=== PATIENT | female | born 1980 | race Caucasian/White ===

== ENCOUNTER 2018-06-19 09:57 | Emergency (ER) | payer MEDICAID, SELFPAY ==
[2018-06-19 09:58] VITALS: BP 111/67; PULSE 79; RESP 14; TEMP 36.4; O2SAT 99; BMI 15.1
--- NOTE | 2018-06-19 10:11 | RAD_ITS ---
STUDY: X-RAY CHEST REASON FOR EXAM: Female, 38 years old. [place]. TECHNIQUE: PA and lateral views of the chest. COMPARISON: None. FINDINGS: Hyperinflation. The lungs are clear. There is no demonstrated pleural abnormality. Normal size heart. Normal mediastinum and sneha. Normal visualized pulmonary arteries. Normal visualized aortic arch and descending thoracic aorta. Normal visualized thoracic spine. Normal visualized ribs, clavicles, and shoulders. There is no demonstrated abnormality of the visualized soft tissue structures of the upper abdomen. RAD/Chest PA and Lateral IMPRESSION: Hyperinflation. The lungs are clear. Electronically Signed: Luis Manzano, at 10:45 EDT , Service support ,
--- NOTE | 2018-06-19 10:15 | ED.DCSUM_ITS ---
- ER Visit Summary Date of Service: 06/19/18 Chief Complaint: Weakness History of Present Illness: The patient is a 38 F who states that on Monday she had an episode of vomiting and went to bed. She stayed in bed for most of the day on Monday not having much to eat or drink. This continued through te . She also developed nasal congestion generalized myalgias subjective fever and chills. Last night she took 2 NyQuil PMs today feels lightheaded and weak. She is worried she has dehydration in combination with the side effects of the medication. She notes her mouth is dry. Physical Examination: Afebrile vital signs are stable Gen: Well-nourished well-developed Head: Normocephalic atraumatic Eyes: Perrl EOMI ENT: TMs clear nasal congestion dry mucous membranes Neck: Supple no lymphadenopathy no JVD nontender CVS: Regular rate rhythm no murmurs normal S1-S2 Respiratory: No distress clear to auscultation bilaterally chest nontender Abdomen: Soft nontender nondistended normal bowel sounds no masses Back: Nontender Extremity: Nontender no edema Skin: Normal color no rash Neuro: alert orientated ?3 CN II-XII intact normal strength sensation reflexes gait cerebellar Psych: Normal affect normal mood Test Results: CBC BMP and flu are essentially negative chest x-ray showed no infiltrate. Emergency Department Course and Treatment: Patient received IV fluids. Patient will be discharged home with supportive care return if worsening or concerns Impression: 1. Viral syndrome This note was generated with [employer] dictation software. It may contain incorrect words, spelling, and punctuation that were not noted in review of the chart prior to signing ED Disposition - Plan for ED Patient: Disposition: Home or Assisted Living Instructions: ED Viral Syndrome
[2018-06-19] MEDS: 0.9% Normal Saline 1,000 ML 1000 ML IV (10:27)
[2018-06-19 10:32] LABS: Absolute Lymphocyte Count 1.25 X10^3/ul (0.83-4.51); Absolute Neutrophil Count 6.7 X10^3/uL (2.0-7.7); Basophil# 0.02 X10^3/uL; Basophil% 0.2 % (0-1); Eosinophil# 0.06 X10^3/uL; Eosinophils% 0.7 % (0-5); Hematocrit 39.1 % (37-47); Hemoglobin 13.3 g/dl (12.0-15.0); Lymphocyte # 1.25 X10^3/ul (4.0); Lymphocyte % 15.1 % (19-41); Mean Corpuscular Hgb 31.5 pg (27.0-32.0); Mean Corpuscular Volume 92.7 fL (81-99); Mean Platelet Vol. 10.3 fl (6.2-12.0); Monocyte# 0.29 X10^3/uL; Monocyte% 3.5 % (0-10); Neutrophil # 6.65 X10^3/uL (2.7-7.7); Neutrophil % 80.4 % (47-70); Platelet Count 210 K/mm3 (150-450); RBC Distribution Width CV 12.4 % (11.6-14.6); RBC Distribution Width SD 42.2 fl (35.1-43.9); Red Blood Count 4.22 M/mm3 (4.2-5.4); White Blood Count 8.3 K/mm3 (4.4-11.0)
[2018-06-19 10:34] LABS: POSITIVE COUNT NO; POSITIVE DIFFERENTIAL NO; POSITIVE MORPHOLOGY NO
[2018-06-19 10:45] LABS: Anion Gap 4 (5-15); BUN 11 mg/dL (7-18); BUN/Creat Ratio 15.3 RATIO (10-20); Calcium,Total 8.5 mg/dL (8.5-10.1); Chloride 110 mmol/L (98-107); Creatinine, Serum 0.72 mg/dL (0.55-1.02); EST Glomerular Filtration Rate 96 mL/min (>60); Est Glom Filt Rate - Afr Amer 116 mL/min (>60); Estimated Creatinine Clearance 76.24 ml/min; Glucose 96 mg/dL (74-106); Potassium 3.5 mmol/L (3.5-5.1); Sodium Level 141 mmol/L (136-145)
[2018-06-19 12:20] VITALS: BP 112/74; PULSE 70; RESP 14; TEMP 36.7; O2SAT 100
== END 2018-06-19 12:22 | disposition home or self-care (01) ==
PROVIDERS: Emergency Provider Emergency Medicine
DX: B34.9 Viral infection, unspecified (principal); E86.0 Dehydration
CPT/HCPCS: 71046; 80048; 85025; 87804; 96360; 96361; 99283; J7030

== ENCOUNTER 2021-03-02 14:18 | Emergency (ER) | payer MEDICAID, SELFPAY ==
[2021-03-02 14:19] VITALS: BP 99/69; PULSE 88; RESP 16; TEMP 35.6; O2SAT 98; BMI 16.2
--- NOTE | 2021-03-02 15:46 | EKG12_ITS ---
Test Reason : ANXIETY Blood Pressure : / mmHG Vent. Rate : 065 BPM Atrial Rate : 065 BPM P-R Int : 150 ms QRS Dur : 084 ms QT Int : 440 ms P-R-T Axes : 070 088 073 degrees QTc Int : 457 ms Normal sinus rhythm Normal ECG Confirmed by BRUNO FRANCO, CESAR ([id number]), book editor BUTCH MAGUIRE ([id number]) on 03/04/2021 8:44:24 AM Referred By: MIKE Confirmed By:CESAR CARR MD
--- NOTE | 2021-03-02 15:48 | EX.ED.DYSGE1 ---
HPI History of Present Illness Chief Complaint: Anxiety Detail of Chief Complaint: Anxiety x2 days Informant: patient Narrative Narrative: Patient presents to the emergency department complaint of anxiety. Patient states that she has issues with anxiety. Yesterday she tried taking a Xanax but she threw it up and could not keep it down. Patient states she had a hard time sleeping all night because she felt hot and cold. She states she got up at 3 AM to take a shower which usually helps with her anxiety but did not seem to help. Patient's been having upper abdominal pain and vomiting which typically happens when she gets a panic attack. Patient also states that no increased stressors of late. She does complain of feeling anxious and describes chest discomfort and nausea. Patient tells me she has gallbladder pain sometimes and has had ultrasound but does not have gallstones. Patient also believes that she might have Marfan's but has not been diagnosed. Prior similar symptoms: Yes [facility] Medical History (Updated 03/02/21 @ 18:[address] Abe Gomez, DO) Melanoma of skin Home Medications lorazepam [Ativan] 1 mg PO TID PRN #10 tab 03/02/21 [Rx Last Taken Unknown] ondansetron 4 mg PO Q8H PRN PRN #10 tab 03/02/21 [Rx Last Taken Unknown] Allergy/AdvReac Type Severity Reaction Status Date / Time No Known Allergies Allergy Verified 03/02/21 14:19 Social History Smoking Status: Never smoker ROS ROS ED ROS Narrative Anxiety Constitutional Constitutional ED: Reports systems reviewed and no addt'l complaints, except as documented; Denies body ache(s), change in weight or chills Eyes Eyes: Denies acute decrease in peripheral vision, change in vision, double vision or loss of vision ENT ENT ED: Reports none; Denies ear pain, lip swelling, loss taste/smell, neck pain, otalgia or sore throat Cardiovascular Cardiovascular: Reports none; Denies abdominal pain, chest pain with activity, leg edema, lightheadedness, palpitations, rapid heart rate or syncope Respiratory/Chest Respiratory/Chest: Reports none; Denies change in mental status, dry cough, dyspnea, hemoptysis, shortness of breath at rest or shortness of breath with exertion Gastrointestinal Gastrointestinal: Reports none, abdominal pain, nausea and vomiting; Denies change in stool character, diarrhea, hematemesis, hematochezia, melena or rectal bleeding Genitourinary Genitourinary ED: Reports none; Denies abdominal discomfort, anuria, dysuria, genital pain or polyuria Musculoskeletal Musculoskeletal: Reports none; Denies arthralgias, back pain, difficulty walking, extremity pain, muscle weakness or myalgias Integumentary Reports none; Denies abscess or rash Neurologic Neurologic: Reports none; Denies abnormal gait, confusion, focal weakness, frequent falls, headache(s), loss of vision, numbness, paresthesias, radicular pain, vertigo or weakness Psychiatric Psychiatric: Reports systems reviewed and no addt'l complaints, except as documented and none; Denies behavioral changes, confusion, difficulty concentrating, hallucinations, suicidal ideation, tactile hallucinations or visual hallucinations Endocrine Endocrinology: Denies none, cold intolerance, excessive sweating, fatigue or heat intolerance Hematologic/Lymphatic Hematologic/Lymphatic: Reports none; Denies anemia, easy bleeding or easy bruising Allergic/Immunologic Allergic/Immunologic ED: Denies as per HPI, none, lip swelling, mouth swelling, throat swelling, tongue swelling or hives EXAM Physical Exam Const Vital Signs: 03/02/21 14:19 Temperature 96.1 F L Temperature Source Temporal Pulse Rate 88 Respiratory Rate 16 Blood Pressure 99/69 Blood Pressure Mean 79 Pulse Ox 98 Oxygen Delivery Method Room Air Positive well nourished and well developed General Appearance ED: well developed and NAD HEENT Reports TM's clear and moist mucous membranes normocephalic and atraumatic; Negative for trauma or tenderness Tympanic Membrane ED: Yes TM's clear Eyes PERRL and EOMs intact bilaterally General Eye ED: Negative for pale conjunctiva or scleral icterus Neck no lymphadenopathy, supple and no JVD General: Negative for tenderness Chest Wall inspection of chest normal and palpation of chest normal Chest: Negative for tenderness Resp normal respiratory effort and clear to auscultation bilaterally Effort and Inspection: Negative for respiratory distress or pain with movement Auscultation: Negative for rhonchi, wheezes or diminished lung sounds Cardio regular rate, regular rhythm, S1 normal heart sound, S2 normal heart sound and no murmurs Peripheral Pulses: pulses 2+ throughout GI normal to inspection, nondistended, normoactive bowel sounds, soft to palpation, non-distended and no masses GI Narrative: Mild tenderness palpation over the epigastric region with some guarding. There is no rebound, rigidity, or peritoneal signs. Patient was actively retching and vomiting as I entered the room. Back/Spine no CVA tenderness and no thoracic nor lumbar tenderness Extremity normal to inspection General Extremety ED: Negative for edema General Extremity: Negative for edema Neuro oriented x3, CN's II-XII intact bilaterally, no sensory deficits noted and gait normal Sensorium / Orientation: awake, alert, oriented to person, oriented to place and oriented to time Motor Exam: strength 5/5 throughout and strength abnormal Psych mental status grossly normal Skin no rashes or lesions noted and no wounds MDM MDM MDM Narrative Medical decision making narrative: IV line established on arrival. Patient was given Zofran 4 mg IV and Ativan 1 mg IV. Patient stopped vomiting and felt markedly improved. She was noted to have 150 ketones in the urine so she received initially a liter mostly of fluid bolus followed by second liter. At this point will be given a prescription for Zofran. She is to continue with her Xanax as needed for anxiety. Patient advised to discontinue marijuana use. Patient to follow-up with her primary care physician in 3 to 5 days. Lab Data Attestation: I reviewed the patient's lab results. Labs: Laboratory Results - last 24 hr 03/02/21 03/02/21 03/02/21 16:17 16:17 16:17 WBC 11.2 H RBC 4.42 Hgb 14.4 Hct 42.4 MCV 95.9 MCH 32.6 H MCHC 34.0 RDW Std Deviation 43.0 RDW Coeff of Juanjo 12.1 Plt Count 306 MPV 10.7 Immature Gran % (Auto) 0.300 Neut % (Auto) 85.8 H Lymph % (Auto) 9.8 L [place] % (Auto) 3.8 Eos % (Auto) 0.0 Baso % (Auto) 0.3 Absolute Neuts (auto) 9.6 H Absolute Lymphs (auto) 1.10 Nucleated RBC % 0 Sodium 142 Potassium 3.3 L Chloride 106 Carbon Dioxide 25.0 Anion Gap 11 BUN 20 H Creatinine 0.88 Estim Creat Clear Calc 65.60 Est GFR (MDRD) Af Amer 90 Est GFR (MDRD) Non-Af 75 BUN/Creatinine Ratio 22.7 H Glucose 144 H Calcium 10.1 Total Bilirubin 0.40 AST 19 ALT 25 Alkaline Phosphatase 61 Troponin I High Sens < 3 L Total Protein 8.1 Albumin 4.2 Globulin 3.9 Albumin/Globulin Ratio 1.1 Lipase 57 L Serum , Qual NEGATIVE Urine Color Urine Clarity Urine pH Ur Specific [place] Urine Protein Urine Glucose (UA) Urine Ketones Urine Occult Blood Urine Nitrite Urine Bilirubin Urine Urobilinogen Ur Leukocyte Esterase Urine RBC Urine WBC Ur Squamous Epith Cells Urine Bacteria Urine Mucus 03/02/21 17:25 WBC RBC Hgb Hct MCV MCH MCHC RDW Std Deviation RDW Coeff of Juanjo Plt Count MPV Immature Gran % (Auto) Neut % (Auto) Lymph % (Auto) [place] % (Auto) Eos % (Auto) Baso % (Auto) Absolute Neuts (auto) Absolute Lymphs (auto) Nucleated RBC % Sodium Potassium Chloride Carbon Dioxide Anion Gap BUN Creatinine Estim Creat Clear Calc Est GFR (MDRD) Af Amer Est GFR (MDRD) Non-Af BUN/Creatinine Ratio Glucose Calcium Total Bilirubin AST ALT Alkaline Phosphatase Troponin I High Sens Total Protein Albumin Globulin Albumin/Globulin Ratio Lipase Serum , Qual Urine Color Yellow Urine Clarity Sl. Cloudy Urine pH 8.0 Ur Specific [place] 1.015 Urine Protein 30 H Urine Glucose (UA) Normal Urine Ketones 150 A* Urine Occult Blood 10 H Urine Nitrite Negative Urine Bilirubin Negative Urine Urobilinogen Normal Ur Leukocyte Esterase 25 H Urine RBC 0-5 SEEN Urine WBC 0-5 SEEN Ur Squamous Epith Cells 0-5 SEEN Urine Bacteria 2+ Urine Mucus 0 SEEN Discharge Plan Triage Chief Complaint: Anxiety ED Provider: Abe Gomez Dx/Rx/DC Orders Clinical Impression: Anxiety reaction Instructions: ED Anxiety Reaction Prescriptions: New ondansetron [ondansetron] 4 MG tablet 4 mg PO Q8H PRN PRN (Reason: Nausea) Qty: 10 RF: 0 lorazepam [Ativan] 1 mg tablet 1 mg PO TID PRN (Reason: anxiety) Qty: 10 RF: 0 Primary Care Provider: Care Physician,No Primary Referrals: Ramon Sidhu MD [STAFF PHYSICIAN] - 3-5 Days Care Physician,No Primary [Primary Care Provider] - Disposition Disposition: Home, Self Care
--- NOTE | 2021-03-02 15:59 | NURSING ---
NO OLD EKGS
[2021-03-02 16:26] LABS: Absolute Neutrophil Count 9.6 X10^3/uL (2.0-7.7); Basophil# 0.03 X10^3/uL; Basophil% 0.3 % (0-1); Hematocrit 42.4 % (37-47); Hemoglobin 14.4 g/dL (12.0-15.0); Lymphocyte % 9.8 % (19-41); Mean Corpuscular Hgb 32.6 pg (27.0-32.0); Mean Corpuscular Volume 95.9 fL (81-99); Mean Platelet Vol. 10.7 fl (6.2-12.0); Monocyte# 0.42 X10^3/uL; Monocyte% 3.8 % (0-10); NRBC Flagged by Analyzer 0 % (0-5); Neutrophil # 9.59 X10^3/uL (2.7-7.7); Neutrophil % 85.8 % (47-70); Platelet Count 306 K/mm3 (150-450); RBC Distribution Width CV 12.1 % (11.6-14.6); Red Blood Count 4.42 M/mm3 (4.2-5.4); White Blood Count 11.2 K/mm3 (4.4-11.0)
[2021-03-02] MEDS: 0.9% Normal Saline 1,000 ML 1000 ML IV (16:29)
[2021-03-02] MEDS: Ondansetron 4 MG/2 ML Vial IV (16:30)
[2021-03-02] MEDS: LORazepam 2 MG/ML Syringe 1 MG IV (16:30)
[2021-03-02 16:34] LABS: Internal QC Validated? YES +Cl - CLEAR BKGD; Pregnancy, Serum, hCG Quali. NEGATIVE Negative
[2021-03-02 16:44] LABS: ALB/GLOB Ratio 1.1 RATIO (0.9-2.4); AST(SGOT) 19 U/L (15-37); Alanine Aminotransfer ALT/SGPT 25 U/L (13-56); Albumin, Serum 4.2 g/dL (3.2-5.0); Alkaline Phosphatase 61 U/L (45-117); Anion Gap 11 (5-15); BUN 20 mg/dL (7-18); BUN/Creat Ratio 22.7 RATIO (10-20); Calcium,Total 10.1 mg/dL (8.5-10.1); Chloride 106 mmol/L (98-107); Creatinine, Serum 0.88 mg/dL (0.55-1.02); EST Glomerular Filtration Rate 75 mL/min (>60); Est Glom Filt Rate - Afr Amer 90 mL/min (>60); Globulin 3.9 g/dL (2.2-4.2); Glucose 144 mg/dL (74-106); Lipase 57 U/L (73-393); Potassium 3.3 mmol/L (3.5-5.1); Protein, Total 8.1 g/dL (6.4-8.2); Sodium Level 142 mmol/L (136-145); Troponin-I HS < 3 pg/mL (3.0-54.0)
[2021-03-02 17:27] LABS: Mucous, Urine 0 SEEN /hpf (<or=2+)
[2021-03-02 17:34] LABS: Color, Urine Yellow (Yellow); Glucose, Dipstick Normal (Normal); Leukocyte Esterase-Dipstick 25 /ul (Negative); Nitrite-Dipstick Negative (Negative); Occult Blood-Urine 10 /ul (Negative); Protein-Dipstick 30 mg/dl (Negative); Specific Gravity, Urine 1.015 (1.002-1.030); Urine Bilirubin Dipstick Negative (Negative); Urine Clarity Sl. Cloudy (Clear); Urine Urobilinogen Normal (Normal)
[2021-03-02 17:35] LABS: Ketone-Dipstick 150 mg/dl (Negative)
[2021-03-02 17:40] LABS: Bacteria 2+ /hpf (None Seen); Red Blood Cells-Urine 0-5 SEEN /hpf (0-5); Squamous Epithelial Cells - UA 0-5 SEEN /hpf (5-10); White Blood Cells 0-5 SEEN /hpf (0-5)
--- NOTE | 2021-03-02 18:28 | CM.ED ---
BRE Note Referral Source: MD and Case Find Referral Reason: Resource and No PCP BRE provided patient with handout of Healthcare Provider Directory completed by [facility]. Patient said that she knows she needs an MD and her mom has been saying that she needs a doctor too. SW encouraged patient to secure PCP. SW spoke to patient about her anxiety. She reports she has had anxiety for 7 years, ever since she left her children's father. Patient said that she always feels anxious but has a panic attack where she feels like I am having a heart attack 3-4 times a year. Patient said that she has been in counseling before but has a hard time talking. SW advised patient that she was doing well speaking to this life insurance underwriter now. SW explained the [facility] IOP/PHP program and that it involves groups, individual and med management. 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 SW provided her brochure on [facility] and community counselors. Patient stated she was interested in speaking to [facility] IOP/PHP staff and open to this life insurance underwriter making a referral to . No further SW needs at this time. BRE made referral to Markell Landers at [facility] BH program Melony JONES
[2021-03-02 18:48] VITALS: BP 112/79; PULSE 79; RESP 16; O2SAT 99
--- NOTE | 2021-03-02 18:49 | ED.RN ---
THIS NURSE REVIEWED D/C INSTRUCTIONS WITH PT. PT VERBALIZED UNDERSTANDING OF INSTRUCTIONS. IV D/C. IV CATHETER INTACT. PT TOLERATED WELL. PT DENIES FURTHER NEEDS OR QUESTIONS AT THIS TIME
== END 2021-03-02 18:50 | disposition home or self-care (01) ==
PROVIDERS: Emergency Provider Emergency Medicine
DX: F41.1 Generalized anxiety disorder (principal); R10.10 Upper abdominal pain, unspecified; R11.2 Nausea with vomiting, unspecified; R07.89 Other chest pain; Z79.899 Other long term (current) drug therapy
CPT/HCPCS: 80053; 81001; 83690; 84484; 84703; 85025; 93005; 96361; 96374; 96375; 99283; J7030; A4216; J2405

== ENCOUNTER 2021-03-05 19:15 | Observation (INO) | payer MEDICAID, SELFPAY ==
[2021-03-05 19:15] VITALS: BP 102/73; PULSE 83; RESP 18; TEMP 36.6; O2SAT 99; BMI 15.6
[2021-03-05] MEDS: 0.9% Normal Saline 1,000 ML 999 ML IV (20:24)
[2021-03-05] MEDS: Haloperidol Lactate 5 MG/ML Vial 2 MG IV (20:24)
[2021-03-05 20:30] LABS: Absolute Lymphocyte Count 2.65 X10^3/uL (0.83-4.51); Absolute Neutrophil Count 4.6 X10^3/uL (2.0-7.7); Basophil# 0.06 X10^3/uL; Basophil% 0.7 % (0-1); Eosinophil# 0.06 X10^3/uL; Eosinophils% 0.7 % (0-5); Hematocrit 39.9 % (37-47); Lymphocyte # 2.65 X10^3/ul (0.83-4.51); Lymphocyte % 32.8 % (19-41); Mean Corp Hgb Conc 35.1 g/dL (32-36); Mean Corpuscular Hgb 32.4 pg (27.0-32.0); Mean Corpuscular Volume 92.4 fL (81-99); Mean Platelet Vol. 10.9 fl (6.2-12.0); Monocyte# 0.72 X10^3/uL; Monocyte% 8.9 % (0-10); NRBC Flagged by Analyzer 0 % (0-5); Neutrophil # 4.57 X10^3/uL (2.7-7.7); Neutrophil % 56.7 % (47-70); Platelet Count 279 K/mm3 (150-450); RBC Distribution Width CV 11.9 % (11.6-14.6); RBC Distribution Width SD 40.9 fl (35.1-43.9); Red Blood Count 4.32 M/mm3 (4.2-5.4); White Blood Count 8.1 K/mm3 (4.4-11.0)
[2021-03-05 20:41] LABS: AST(SGOT) 16 U/L (15-37); Alanine Aminotransfer ALT/SGPT 25 U/L (13-56); Albumin, Serum 3.6 g/dL (3.2-5.0); Alkaline Phosphatase 54 U/L (45-117); Anion Gap 8 (5-15); BUN 18 mg/dL (7-18); BUN/Creat Ratio 24.8 RATIO (10-20); Calcium,Total 9.3 mg/dL (8.5-10.1); Chloride 107 mmol/L (98-107); Creatinine, Serum 0.72 mg/dL (0.55-1.02); EST Glomerular Filtration Rate 93 mL/min (>60); Est Glom Filt Rate - Afr Amer 113 mL/min (>60); Estimated Creatinine Clearance 77.29 ml/min; Globulin 3.6 g/dL (2.2-4.2); Glucose 86 mg/dL (74-106); Lipase 35 U/L (73-393); Potassium 2.9 mmol/L (3.5-5.1); Protein, Total 7.2 g/dL (6.4-8.2); Sodium Level 142 mmol/L (136-145)
[2021-03-05 21:32] LABS: Magnesium 2.4 mg/dL (1.6-2.6)
[2021-03-05 21:40] VITALS: RESP 16; O2SAT 98
[2021-03-05 21:40] LABS: Mucous, Urine 0 SEEN /hpf (<or=2+); Red Blood Cells-Urine 0 SEEN /hpf (0-5); White Blood Cells 0 SEEN /hpf (0-5)
[2021-03-05 21:45] LABS: Color, Urine Yellow (Yellow); Glucose, Dipstick Normal (Normal); Leukocyte Esterase-Dipstick Negative /ul (Negative); Nitrite-Dipstick Negative (Negative); Occult Blood-Urine 10 /ul (Negative); Protein-Dipstick 15 mg/dl (Negative); Urine Bilirubin Dipstick Negative (Negative); Urine Clarity Clear (Clear); Urine Urobilinogen Normal (Normal); Urine pH 6.5 (5.0 - 8.0)
[2021-03-05 21:51] LABS: Ketone-Dipstick 150 mg/dl (Negative)
[2021-03-05] MEDS: Potassium Chloride 10mEq/100mL 10 MEQ/100 ML IV.SOLN. 100 MEQ IV BOLUS ×2 (21:56→23:30)
--- NOTE | 2021-03-05 22:03 | ED.VIS.GI ---
HPI HPI - GI History of Present Illness Chief Complaint: Nausea/Vomiting Narrative Narrative: 40-year-old female presenting with nausea/vomiting. She states she was seen earlier this week for the same thing. Patient states that she has not been able to hold down much food or fluids because of the abdominal cramping and pain. She does admit to smoking marijuana daily. She states she smoked is at the end of the workday when her feet hurt. She states she also smokes this sometimes in the morning. Patient has no history of cannabinoid hyperemesis syndrome but does state that this was discussed with her on her last visit. Patient is not had any fever, chills. She has not had a cough or shortness of breath. Patient states she was sent home with [employer] but had eaten the mall and now does not have any. She reports that she feels like she is able to drink Gatorade in the bathtub when it is warm. This is the only place where she can tolerate fluids because it relaxes her. Patient states that she is not a warm bath that she cannot eat. She does not state that there is a specific point in her body that needs to be warmed. [facility] Medical History Anxiety Melanoma of skin Home Medications lorazepam [Ativan] 1 mg PO TID PRN #10 tab 03/02/21 [Rx Last Taken Unknown] ondansetron 4 mg PO Q8H PRN PRN #10 tab 03/02/21 [Rx Last Taken Unknown] Allergy/AdvReac Type Severity Reaction Status Date / Time No Known Allergies Allergy Verified 03/02/21 14:19 Social History Smoking Status: Never smoker ROS ROS ED Constitutional Constitutional ED: Denies chills or fever(s) ENT ENT ED: Denies rhinorrhea or sore throat Cardiovascular Cardiovascular: Denies chest pain or palpitations Respiratory/Chest Respiratory/Chest: Denies cough, dyspnea or sputum Gastrointestinal Gastrointestinal: Reports abdominal pain, nausea and vomiting; Denies constipation or diarrhea Genitourinary Genitourinary ED: Denies dysuria or hematuria Musculoskeletal Musculoskeletal: Denies arthralgias or myalgias Integumentary Denies rash Neurologic Neurologic: Denies headache(s) or paresthesias Psychiatric Psychiatric: Denies anxiety or depression EXAM Physical Exam Const Vital Signs: 03/05/21 19:15 03/05/21 21:40 Temperature 97.9 F Temperature Source Temporal Pulse Rate 83 Respiratory Rate 18 16 Blood Pressure 102/73 Blood Pressure Mean 82 Pulse Ox 99 98 Oxygen Delivery Method Room Air Room Air Positive well nourished General Appearance ED: NAD; Negative for pallor HEENT normocephalic and atraumatic Eyes PERRL and EOMs intact bilaterally General Eye ED: Negative for pale conjunctiva or scleral icterus Neck no lymphadenopathy and supple Resp normal respiratory effort and clear to auscultation bilaterally Cardio regular rate and regular rhythm GI non-distended Palpation: soft; Negative for guarding or rigid Back/Spine no CVA tenderness Neuro Sensorium / Orientation: alert, oriented to person, oriented to place and oriented to time Psych mental status grossly normal and thought process normal Skin General Skin Exam: Negative for jaundice or pallor MDM MDM MDM Narrative Medical decision making narrative: Patient presenting with symptoms of nausea and vomiting. I do suspect cannabinoid hyperemesis syndrome based on her symptoms. I obtained lab work and her CBC shows no leukocytosis and her hemoglobin hematocrit are stable. Platelets are normal. Renal function is normal however she is slightly prerenal with a BUN/creatinine ratio 24.8. This is slightly worsened than previously although she has no acute kidney injury. Potassium is low at 2.9 and I did check a magnesium level which is 2.4. LFTs and lipase are normal. Potassium will be placed to the IV. Patient was given Haldol for nausea and vomiting. Urinalysis is negative for infection but does show urine ketones. On evaluation she states she still feels too sick to go home. She is given Zofran and Pepcid through the IV. She does not feel as if she is improved significantly. Patient was discussed with the hospitalist for admission due to intractable nausea and vomiting. Impression: 1. Nausea/vomiting 2. Cannabinoid hyperemesis Lab Data Attestation: I reviewed the patient's lab results. Labs: Laboratory Results - last 24 hr 03/05/21 03/05/21 03/05/21 19:38 19:38 19:38 WBC 8.1 RBC 4.32 Hgb 14.0 Hct 39.9 MCV 92.4 MCH 32.4 H MCHC 35.1 RDW Std Deviation 40.9 RDW Coeff of Juanjo 11.9 Plt Count 279 MPV 10.9 Immature Gran % (Auto) 0.200 Neut % (Auto) 56.7 Lymph % (Auto) 32.8 [place] % (Auto) 8.9 Eos % (Auto) 0.7 Baso % (Auto) 0.7 Absolute Neuts (auto) 4.6 Absolute Lymphs (auto) 2.65 Nucleated RBC % 0 Sodium 142 Potassium 2.9 L Chloride 107 Carbon Dioxide 27.0 Anion Gap 8 BUN 18 Creatinine 0.72 Estim Creat Clear Calc 77.29 Est GFR (MDRD) Af Amer 113 Est GFR (MDRD) Non-Af 93 BUN/Creatinine Ratio 24.8 H Glucose 86 Calcium 9.3 Magnesium 2.4 Total Bilirubin 0.60 AST 16 ALT 25 Alkaline Phosphatase 54 Total Protein 7.2 Albumin 3.6 Globulin 3.6 Albumin/Globulin Ratio 1.0 Lipase 35 L Urine Color Urine Clarity Urine pH Ur Specific [place] Urine Protein Urine Glucose (UA) Urine Ketones Urine Occult Blood Urine Nitrite Urine Bilirubin Urine Urobilinogen Ur Leukocyte Esterase Urine RBC Urine WBC Ur Squamous Epith Cells Urine Bacteria Urine Mucus Urine Opiates Screen Urine Methadone Screen Ur Barbiturates Screen Ur Phencyclidine Scrn Ur Amphetamines Screen U Methamphetamin-MDMA U Benzodiazepines Scrn Urine Cocaine Screen U Cannabinoids Screen Ur Drug Screen Comment 03/05/21 03/05/21 21:31 21:31 WBC RBC Hgb Hct MCV MCH MCHC RDW Std Deviation RDW Coeff of Juanjo Plt Count MPV Immature Gran % (Auto) Neut % (Auto) Lymph % (Auto) [place] % (Auto) Eos % (Auto) Baso % (Auto) Absolute Neuts (auto) Absolute Lymphs (auto) Nucleated RBC % Sodium Potassium Chloride Carbon Dioxide Anion Gap BUN Creatinine Estim Creat Clear Calc Est GFR (MDRD) Af Amer Est GFR (MDRD) Non-Af BUN/Creatinine Ratio Glucose Calcium Magnesium Total Bilirubin AST ALT Alkaline Phosphatase Total Protein Albumin Globulin Albumin/Globulin Ratio Lipase Urine Color Yellow Urine Clarity Clear Urine pH 6.5 Ur Specific [place] 1.030 Urine Protein 15 H Urine Glucose (UA) Normal Urine Ketones 150 A* Urine Occult Blood 10 H Urine Nitrite Negative Urine Bilirubin Negative Urine Urobilinogen Normal Ur Leukocyte Esterase Negative Urine RBC 0 SEEN Urine WBC 0 SEEN Ur Squamous Epith Cells 0-5 SEEN Urine Bacteria 1+ Urine Mucus 0 SEEN Urine Opiates Screen NEGATIVE Urine Methadone Screen NEGATIVE Ur Barbiturates Screen NEGATIVE Ur Phencyclidine Scrn NEGATIVE Ur Amphetamines Screen NEGATIVE U Methamphetamin-MDMA NEGATIVE U Benzodiazepines Scrn POSITIVE H Urine Cocaine Screen NEGATIVE U Cannabinoids Screen POSITIVE H Ur Drug Screen Comment Discharge Plan Triage Chief Complaint: Nausea/Vomiting ED Provider: Severino Edwards Dx/Rx/DC Orders Prescriptions: No Action ondansetron [ondansetron] 4 MG tablet 4 mg PO Q8H PRN PRN (Reason: Nausea) Qty: 10 RF: 0 lorazepam [Ativan] 1 mg tablet 1 mg PO TID PRN (Reason: anxiety) Qty: 10 RF: 0 Primary Care Provider: Care Physician,No Primary
[2021-03-05 22:06] LABS: Amphetamine Urine VISTA NEGATIVE (<1000 ng/mL); Barbiturate Urine VISTA NEGATIVE (< 200 ng/mL); Benzodiazepine Urine VISTA POSITIVE (< 200 ng/mL); Cocaine Urine VISTA NEGATIVE (< 300 ng/mL); Ecstacy Urine VISTA NEGATIVE (< 500 ng/mL); Methadone Urine VISTA NEGATIVE (< 300 ng/mL); PCP Urine VISTA NEGATIVE (< 25 ng/mL); THC Urine VISTA POSITIVE (< 50 ng/mL); Vista UDS pH Range 6
[2021-03-05 22:09] LABS: Bacteria 1+ /hpf (None Seen); Squamous Epithelial Cells - UA 0-5 SEEN /hpf (5-10)
[2021-03-05 22:24] VITALS: BP 112/68; PULSE 71; RESP 14; TEMP 36.6; O2SAT 97
[2021-03-05] MEDS: Famotidine 200 MG/20 ML MDV 20 MG in 0.9% Normal Saline (Pres. free 8 ML 300 MG IV (22:28)
[2021-03-05] MEDS: Ondansetron 4 MG/2 ML Vial IV (22:28)
[2021-03-05 23:13] VITALS: BP 111/65; PULSE 88; RESP 16; TEMP 36.9; O2SAT 97; BMI 16.0
[2021-03-06] MEDS: Potassium Chloride 10mEq/100mL 10 MEQ/100 ML IV.SOLN. 100 MEQ IV BOLUS ×2 (00:32→01:39)
[2021-03-06] MEDS: 0.9% Normal Saline 1,000 ML 150 ML IV (00:32)
--- NOTE | 2021-03-06 00:56 | HP.PCM.HOS_ITS ---
HPI - General General Date of Admission: 03/05/21 HPI Narrative ANDREINA BURGOS, is a 40 F who presents with nausea and vomiting. Patient was seen in the ED several days ago for more anxiety type symptoms and nausea vomiting but was discharged on Zofran. She took the Zofran very frequently up to every 2 hours and it did help the nausea but she ran out of the medications. Her nausea and vomiting symptoms have been going on since 4 days ago and she notes that these are new. She has not been eating solid food for the last 2 days but does drink Gatorade and can keep this down. She drinks Gatorade in bathtub and states the warm water helps with her nausea and she can tolerate the Gatorade better. She does smoke marijuana and she has been smoking marijuana for many years, 2-5 times a day and will wake up during the night to smoke marijuana as well. She smokes marijuana to relieve the pain in her feet. Vomiting has been getting very severe over 6 times a day, and she states that her house is a mess due to all the emesis. Upon evaluation in the ED her vitals were completely stable, and she had improvement in her symptoms, but stated that she has trouble sleeping and wanted to stay. The labs were significant for potassium of 2.9, LFT's normal. Urine preg test negative from 3 days prior. She does not smoke tobacco or use alcohol [facility] Medical History Anxiety Melanoma of skin Home Medications lorazepam [Ativan] 1 mg PO TID PRN #10 tab 03/02/21 [Rx Last Taken Unknown] ondansetron 4 mg PO Q8H PRN PRN #10 tab 03/02/21 [Rx Last Taken 03/05/21 01:00] Allergy/AdvReac Type Severity Reaction Status Date / Time No Known Allergies Allergy Verified 03/02/21 14:19 Social History Smoking Status: Never smoker ROS ROS Narrative No fevers chills diarrhea, constipation, dysuria or hematuria + ABd pain, nausea, vomiting and anxiety. CP, SOB is associated with anxiety spells + sleep disturbance. No syncope, falls, or seizures. No trouble with skin, muscles, joints or trouble seeing hearing swallowing. + Foot pain Vital Signs Vital Signs Vital Signs: 03/05/21 19:15 03/05/21 21:40 03/05/21 22:24 Temperature 97.9 F 97.8 F Temperature Source Temporal Temporal Pulse Rate 83 71 Respiratory Rate 18 16 14 Respiratory Effort Respiratory Depth Respiratory Pattern Blood Pressure 102/73 112/68 Blood Pressure Mean 82 82 Blood Pressure Source Blood Pressure Position Blood Pressure Location Pulse Ox 99 98 97 Oxygen Delivery Method Room Air Room Air Room Air 03/05/21 23:13 03/05/21 23:30 Temperature 98.5 F Temperature Source Oral Pulse Rate 88 Respiratory Rate 16 Respiratory Effort Normal Non-Labored Respiratory Depth Normal Respiratory Pattern Normal Blood Pressure 111/65 Blood Pressure Mean 80 Blood Pressure Source Monitor Blood Pressure Position Semi-Fowlers Blood Pressure Location Right Arm Pulse Ox 97 Oxygen Delivery Method Room Air Room Air Weight Weight: 108 lb 14.534 oz Body Mass Index (BMI) 16.0 Physical Exam Narrative Const alert General Appearance: cooperative HEENT normocephalic and head/scalp atraumatic Eyes PERRL and EOMs intact bilaterally Neck no lymphadenopathy Resp normal respiratory effort and no retractions Cardio regular rate and regular rhythm GI soft to palpation and non-distended GI Narrative: tender in epigastrum. There is no gaurding. Extremity full ROM and no clubbing, cyanosis or edema Skin no rashes or lesions noted Neuro Sensorium / Orientation: alert Psych Psych Narrative: Avoids eye contact & always fidgeting. Mood & Affect: anxious Results Lab / Micro Data Result Diagrams: 03/05/21 19:38 03/05/21 19:38 Labs: Laboratory Results - last 24 hr 03/05/21 19:38: WBC 8.1, RBC 4.32, Hgb 14.0, Hct 39.9, MCV 92.4, MCH 32.4 H, MCHC 35.1, RDW Std Deviation 40.9, RDW Coeff of Juanjo 11.9, Plt Count 279, MPV 10.9, Immature Gran % (Auto) 0.200, Neut % (Auto) 56.7, Lymph % (Auto) 32.8, [place] % (Auto) 8.9, Eos % (Auto) 0.7, Baso % (Auto) 0.7, Absolute Neuts (auto) 4.6, Absolute Lymphs (auto) 2.65, Nucleated RBC % 0 03/05/21 19:38: Sodium 142, Potassium 2.9 L, Chloride 107, Carbon Dioxide 27.0, Anion Gap 8, BUN 18, Creatinine 0.72, Estim Creat Clear Calc 77.29, Est GFR (MDRD) Af Amer 113, Est GFR (MDRD) Non-Af 93, BUN/Creatinine Ratio 24.8 H, Glucose 86, Calcium 9.3, Total Bilirubin 0.60, AST 16, ALT 25, Alkaline Reji sphatase 54, Total Protein 7.2, Albumin 3.6, Globulin 3.6, Albumin/Globulin Ratio 1.0, Lipase 35 L 03/05/21 19:38: Magnesium 2.4 03/05/21 21:31: Urine Color Yellow, Urine Clarity Clear, Urine pH 6.5, Ur Specific Loop 1.030, Urine Protein 15 H, Urine Glucose (UA) Normal, Urine Ketones 150 A*, Urine Occult Blood 10 H, Urine Nitrite Negative, Urine Bilirubin Negative, Urine Urobilinogen Normal, Ur Leukocyte Esterase Negative, Urine RBC 0 SEEN, Urine WBC 0 SEEN, Ur Squamous Epith Cells 0-5 SEEN, Urine Bacteria 1+, Urine Mucus 0 SEEN 03/05/21 21:31: Urine Opiates Screen NEGATIVE, Urine Methadone Screen NEGATIVE, Ur Barbiturates Screen NEGATIVE, Ur Phencyclidine Scrn NEGATIVE, Ur Amphetamines Screen NEGATIVE, U Methamphetamin-MDMA NEGATIVE, U Benzodiazepines Scrn POSITIVE H, Urine Cocaine Screen NEGATIVE, U Cannabinoids Screen POSITIVE H, Ur Drug Screen Comment Assessment & Plan Assessment/Plan (1) Cannabinoid hyperemesis syndrome: (2) Nausea & vomiting: (3) Anxiety reaction: PLAN: Nausea and vomiting - Admit as observation status -This is likely cannabis hyperemesis syndrome, that has manifested lately even though patient has been smoking for a long time -Advised at length to avoid marijuana as this is only true cure -We will continue Zofran as needed. Will need Zofran on discharge, likely -Continue IV fluids, at 150 an hour. -We will start clear liquid diet and see how she tolerates -Haldol can also be considered as needed, if symptoms do not improve -IV PPI -Would be wheeler to avoid NSAIDs given this can irritate and cause gastritis versus ulcers -For hypokalemia, will replete and check on morning labs. Was given 10 mEq IV. -check lipase Anxiety -Monitor, and could be withdrawal -Was recently given benzodiazepines for discharged home Patient is full code Continue Lovenox for DVT prophylaxis Continue clear liquid diet at this time, advance as tolerated Blane Manning MD Charges/Coding Visit Charges OBSV E&M: 09358 Initial observation care L2
[2021-03-06] MEDS: Ondansetron 4 MG/2 ML Vial IV ×5 (03:18→20:22)
[2021-03-06 05:35] VITALS: BP 111/65; PULSE 76; RESP 16; TEMP 36.7; O2SAT 100
[2021-03-06 06:45] LABS: Absolute Lymphocyte Count 1.73 X10^3/uL (0.83-4.51); Absolute Neutrophil Count 4.1 X10^3/uL (2.0-7.7); Basophil# 0.05 X10^3/uL; Basophil% 0.8 % (0-1); Eosinophil# 0.03 X10^3/uL; Eosinophils% 0.5 % (0-5); Hematocrit 36.5 % (37-47); Hemoglobin 12.2 g/dL (12.0-15.0); Lymphocyte # 1.73 X10^3/ul (0.83-4.51); Lymphocyte % 26.9 % (19-41); Mean Corp Hgb Conc 33.4 g/dL (32-36); Mean Corpuscular Hgb 32.1 pg (27.0-32.0); Mean Corpuscular Volume 96.1 fL (81-99); Mean Platelet Vol. 10.7 fl (6.2-12.0); Monocyte# 0.48 X10^3/uL; Monocyte% 7.5 % (0-10); NRBC Flagged by Analyzer 0 % (0-5); Neutrophil # 4.11 X10^3/uL (2.7-7.7); Platelet Count 239 K/mm3 (150-450); RBC Distribution Width SD 42.5 fl (35.1-43.9); White Blood Count 6.4 K/mm3 (4.4-11.0)
[2021-03-06 07:05] LABS: AST(SGOT) 11 U/L (15-37); Alanine Aminotransfer ALT/SGPT 20 U/L (13-56); Alkaline Phosphatase 48 U/L (45-117); Anion Gap 8 (5-15); BUN 15 mg/dL (7-18); BUN/Creat Ratio 31.2 RATIO (10-20); Calcium,Total 8.2 mg/dL (8.5-10.1); Chloride 114 mmol/L (98-107); Creatinine, Serum 0.48 mg/dL (0.55-1.02); EST Glomerular Filtration Rate 150 mL/min (>60); Est Glom Filt Rate - Afr Amer 182 mL/min (>60); Estimated Creatinine Clearance 119.07 ml/min; Glucose 68 mg/dL (74-106); Lipase 39 U/L (73-393); Magnesium 2.3 mg/dL (1.6-2.6); Potassium 3.5 mmol/L (3.5-5.1); Sodium Level 143 mmol/L (136-145)
[2021-03-06 07:35] VITALS: BP 106/68; PULSE 70; RESP 16; TEMP 37.3; O2SAT 99
[2021-03-06] MEDS: 0.9% Saline Lock 10 ML Syringe IV ×4 (07:43→20:22)
[2021-03-06] MEDS: Enoxaparin 40 MG/0.4 ML Syringe SC (10:51)
--- NOTE | 2021-03-06 12:41 | PN.HOSP_ITS ---
Subjective Subjective Patient seen and examined. Still complains of nausea and generalised malaise. She is noted to ahve a low grade fever of 99.2F today. REview of systems otherwise negative. Objective Data Objective Data Vital Signs: Vital Signs Temp Pulse Resp BP Pulse Ox 99.2 F H 70 16 106/68 99 03/06/21 07:35 03/06/21 07:35 03/06/21 07:35 03/06/21 07:35 03/06/21 07:35 Oxygen Delivery Method Room Air Weight: 108 lb 14.534 oz Body Mass Index (BMI) 16.0 Intake & Output: Intake and Output for Last 24 Hours 03/04/21 03/05/21 03/06/21 23:59 23:59 23:59 Intake Total 1110 / 1110 1667 / 1667 Balance 1110 / 1110 1667 / 1667 Lab / Micro Data Result Diagrams: 03/06/21 06:20 03/06/21 06:20 Labs: Laboratory Results - last 24 hr 03/05/21 19:38: WBC 8.1, RBC 4.32, Hgb 14.0, Hct 39.9, MCV 92.4, MCH 32.4 H, MCHC 35.1, RDW Std Deviation 40.9, RDW Coeff of Juanjo 11.9, Plt Count 279, MPV 10.9, Immature Gran % (Auto) 0.200, Neut % (Auto) 56.7, Lymph % (Auto) 32.8, [place] % (Auto) 8.9, Eos % (Auto) 0.7, Baso % (Auto) 0.7, Absolute Neuts (auto) 4.6, Absolute Lymphs (auto) 2.65, Nucleated RBC % 0 03/05/21 19:38: Sodium 142, Potassium 2.9 L, Chloride 107, Carbon Dioxide 27.0, Anion Gap 8, BUN 18, Creatinine 0.72, Estim Creat Clear Calc 77.29, Est GFR (MDRD) Af Amer 113, Est GFR (MDRD) Non-Af 93, BUN/Creatinine Ratio 24.8 H, Glucose 86, Calcium 9.3, Total Bilirubin 0.60, AST 16, ALT 25, Alkaline Phosphatase 54, Total Protein 7.2, Albumin 3.6, Globulin 3.6, Albumin/Globulin Ratio 1.0, Lipase 35 L 03/05/21 19:38: Magnesium 2.4 03/05/21 21:31: Urine Color Yellow, Urine Clarity Clear, Urine pH 6.5, Ur Specific [place] 1.030, Urine Protein 15 H, Urine Glucose (UA) Normal, Urine Ketones 150 A*, Urine Occult Blood 10 H, Urine Nitrite Negative, Urine Bilirubin Negative, Urine Urobilinogen Normal, Ur Leukocyte Esterase Negative, Urine RBC 0 SEEN, Urine WBC 0 SEEN, Ur Squamous Epith Cells 0-5 SEEN, Urine Bacteria 1+, U rine Mucus 0 SEEN 03/05/21 21:31: Urine Opiates Screen NEGATIVE, Urine Methadone Screen NEGATIVE, Ur Barbiturates Screen NEGATIVE, Ur Phencyclidine Scrn NEGATIVE, Ur Amphetamines Screen NEGATIVE, U Methamphetamin-MDMA NEGATIVE, U Benzodiazepines Scrn POSITIVE H, Urine Cocaine Screen NEGATIVE, U Cannabinoids Screen POSITIVE H, Ur Drug Screen Comment 03/06/21 06:20: WBC 6.4, RBC 3.80 L, Hgb 12.2, Hct 36.5 L, MCV 96.1, MCH 32.1 H, MCHC 33.4, RDW Std Deviation 42.5, RDW Coeff of Juanjo 12.0, Plt Count 239, MPV 10.7, Immature Gran % (Auto) 0.300, Neut % (Auto) 64.0, Lymph % (Auto) 26.9, [place] % (Auto) 7.5, Eos % (Auto) 0.5, Baso % (Auto) 0.8, Absolute Neuts (auto) 4.1, Absolute Lymphs (auto) 1.73, Nucleated RBC % 0 03/06/21 06:20: Sodium 143, Potassium 3.5, Chloride 114 H, Carbon Dioxide 21.0, Anion Gap 8, BUN 15, Creatinine 0.48 L, Estim Creat Clear Calc 119.07, Est GFR (MDRD) Af Amer 182, Est GFR (MDRD) Non-Af 150, BUN/Creatinine Ratio 31.2 H, Glucose 68 L, Calcium 8.2 L, Magnesium 2.3, Total Bilirubin 0.40, Direct Bilirubin 0.10, AST 11 L, ALT 20, Alkaline Phosphatase 48, Total Protein 6.0 L, Albumin 3.0 L, Globulin 3.0, Lipase 39 L Physical Exam Const alert, oriented x3 and no apparent distress Orientation / Consciousness: lethargic Exam Limitations: no limitations HEENT head/scalp atraumatic and moist oral mucous membranes Head and Scalp: normocephalic Eyes PERRL, EOMs intact bilaterally and conjunctivae normal Neck no lymphadenopathy Resp normal respiratory effort, no retractions and no use of accessory muscles Cardio regular rate, regular rhythm and S1 normal heart sound GI normal to inspection, nondistended, normoactive bowel sounds, soft to palpation and non-tender Extremity normal to inspection, full ROM and no clubbing, cyanosis or edema Peripheral Pulses: Yes pulses 2+ throughout Skin no rashes or lesions noted Neuro oriented x3, CN's II-XII intact bilaterally and moves all extremities Sensorium / Orientation: awake and alert Psych affect normal Assessment & Plan Assessment/Plan (1) Nausea & vomiting: (2) Cannabinoid hyperemesis syndrome: PLAN: #Cannabis hyperemesis syndrome * Patient still complains of nausea and vomiting. Likely due to her frequent use of marijuana * Patient counseled that she would need to stop using marijuana * Continue hydration with IV fluids. IV Zofran as needed * Advance diet as tolerated. * IV PPI * #Anxiety: stable. Will monitor DVT prophylaxis: Lovenox Charges/Coding Visit Charges Inpatient E&M: 57396 [facility] Hosp L3
[2021-03-06 13:54] VITALS: BP 109/71; PULSE 69; RESP 16; TEMP 36.6; O2SAT 98
[2021-03-06 20:15] VITALS: BP 114/67; PULSE 64; RESP 16; TEMP 37.4; O2SAT 100
[2021-03-06] MEDS: MELATONIN 3 MG TABLET PO (20:22)
[2021-03-06 20:35] VITALS: RESP 16; O2SAT 100
[2021-03-07 04:00] VITALS: BP 122/72; PULSE 82; RESP 16; TEMP 36.9; O2SAT 100
[2021-03-07] MEDS: 0.9% Saline Lock 10 ML Syringe IV ×5 (04:14→21:35)
[2021-03-07] MEDS: Ondansetron 4 MG/2 ML Vial IV ×4 (04:14→21:35)
[2021-03-07 06:55] LABS: Absolute Lymphocyte Count 1.43 X10^3/uL (0.83-4.51); Absolute Neutrophil Count 3.8 X10^3/uL (2.0-7.7); Basophil# 0.06 X10^3/uL; Eosinophils% 1.7 % (0-5); Hematocrit 34.8 % (37-47); Hemoglobin 12.2 g/dL (12.0-15.0); Lymphocyte # 1.43 X10^3/ul (0.83-4.51); Lymphocyte % 24.6 % (19-41); Mean Corp Hgb Conc 35.1 g/dL (32-36); Mean Corpuscular Hgb 33.2 pg (27.0-32.0); Mean Corpuscular Volume 94.6 fL (81-99); Monocyte# 0.44 X10^3/uL; Monocyte% 7.6 % (0-10); NRBC Flagged by Analyzer 0 % (0-5); Neutrophil # 3.76 X10^3/uL (2.7-7.7); Neutrophil % 64.8 % (47-70); Platelet Count 235 K/mm3 (150-450); RBC Distribution Width SD 41.7 fl (35.1-43.9); Red Blood Count 3.68 M/mm3 (4.2-5.4); White Blood Count 5.8 K/mm3 (4.4-11.0)
[2021-03-07 07:15] LABS: Anion Gap 10 (5-15); BUN 10 mg/dL (7-18); BUN/Creat Ratio 19.9 RATIO (10-20); Chloride 110 mmol/L (98-107); EST Glomerular Filtration Rate 142 mL/min (>60); Est Glom Filt Rate - Afr Amer 172 mL/min (>60); Estimated Creatinine Clearance 114.31 ml/min; Glucose 71 mg/dL (74-106); Magnesium 2.1 mg/dL (1.6-2.6); Potassium 3.5 mmol/L (3.5-5.1); Sodium Level 140 mmol/L (136-145)
[2021-03-07 07:21] VITALS: BP 113/61; PULSE 73; RESP 16; TEMP 37.1; O2SAT 98
[2021-03-07] MEDS: Enoxaparin 40 MG/0.4 ML Syringe SC (09:24)
--- NOTE | 2021-03-07 10:47 | PN.HOSP_ITS ---
Subjective Subjective Patient seen and examined. Still complains of weakness and nausea. She has not really advanced her diet and has not been taking the clear liquid diet yet. Review of systems otherwise negative. Objective Data Objective Data Vital Signs: Vital Signs Temp Pulse Resp BP Pulse Ox 98.7 F 73 16 113/61 98 03/07/21 07:21 03/07/21 07:21 03/07/21 07:21 03/07/21 07:21 03/07/21 07:21 Oxygen Delivery Method Room Air Weight: 108 lb 14.534 oz Body Mass Index (BMI) 16.0 Intake & Output: Intake and Output for Last 24 Hours 03/05/21 03/06/21 03/07/21 23:59 23:59 23:59 Intake Total 1110 / 1110 1667 / 1667 Balance 1110 / 1110 1667 / 1667 Lab / Micro Data Result Diagrams: 03/07/21 06:00 03/07/21 06:00 Labs: Laboratory Results - last 24 hr 03/07/21 06:00: WBC 5.8, RBC 3.68 L, Hgb 12.2, Hct 34.8 L, MCV 94.6, MCH 33.2 H, MCHC 35.1 D, RDW Std Deviation 41.7, RDW Coeff of Juanjo 12.0, Plt Count 235, MPV 11.0, Immature Gran % (Auto) 0.300, Neut % (Auto) 64.8, Lymph % (Auto) 24.6, [place] % (Auto) 7.6, Eos % (Auto) 1.7, Baso % (Auto) 1.0, Absolute Neuts (auto) 3.8, Absolute Lymphs (auto) 1.43, Nucleated RBC % 0 03/07/21 06:00: Sodium 140, Potassium 3.5, Chloride 110 H, Carbon Dioxide 20.0 L , Anion Gap 10, BUN 10, Creatinine 0.50 L, Estim Creat Clear Calc 114.31, Est GFR (MDRD) Af Amer 172, Est GFR (MDRD) Non-Af 142, BUN/Creatinine Ratio 19.9, Glucose 71 L, Calcium 8.0 L, Magnesium 2.1 Physical Exam Narrative Const alert, oriented x3 and no apparent distress General Appearance: cooperative Orientation / Consciousness: lethargic Exam Limitations: no limitations Nutritional Appearance: underweight HEENT normocephalic, head/scalp atraumatic and moist oral mucous membranes Head and Scalp: normocephalic Eyes PERRL, EOMs intact bilaterally and conjunctivae normal Neck no lymphadenopathy Resp normal respiratory effort, no retractions and no use of accessory muscles Cardio regular rate, regular rhythm and S1 normal heart sound GI normal to inspection, nondistended, normoactive bowel sounds, soft to palpation, non-tender and non-distended GI Narrative: tender in epigastrum. There is no gaurding. Extremity normal to inspection, full ROM and no clubbing, cyanosis or edema Skin no rashes or lesions noted Neuro oriented x3, CN's II-XII intact bilaterally and moves all extremities Sensorium / Orientation: awake and alert Psych affect normal Mood & Affect: anxious Assessment & Plan Assessment/Plan (1) Nausea & vomiting: (2) Cannabinoid hyperemesis syndrome: PLAN: #Cannabis hyperemesis syndrome * she hasnt had any vomiting, but still complains of nausea * thought to be due to her frequent use of marijuana * Patient counseled that she would need to stop using marijuana * Continue hydration with IV fluids. IV Zofran as needed * Advance diet as tolerated. * IV PPI * #Anxiety: stable. Will monitor DVT prophylaxis: Lovenox Charges/Coding Visit Charges Inpatient E&M: 40134 Subs Hosp L2
[2021-03-07 14:06] VITALS: BP 121/62; PULSE 79; RESP 16; TEMP 37.1; O2SAT 99
[2021-03-07 20:45] VITALS: BP 111/65; PULSE 61; RESP 16; TEMP 37.4; O2SAT 98
[2021-03-07] MEDS: MELATONIN 3 MG TABLET PO (21:35)
[2021-03-08 04:00] VITALS: BP 114/78; PULSE 71; RESP 16; TEMP 37.3; O2SAT 99
[2021-03-08] MEDS: 0.9% Saline Lock 10 ML Syringe IV ×3 (04:51→12:24)
[2021-03-08] MEDS: Ondansetron 4 MG/2 ML Vial IV ×3 (04:51→16:16)
[2021-03-08 05:54] LABS: Absolute Lymphocyte Count 1.98 X10^3/uL (0.83-4.51); Absolute Neutrophil Count 2.9 X10^3/uL (2.0-7.7); Basophil# 0.04 X10^3/uL; Basophil% 0.7 % (0-1); Eosinophil# 0.16 X10^3/uL; Eosinophils% 2.9 % (0-5); Hematocrit 36.3 % (37-47); Hemoglobin 12.6 g/dL (12.0-15.0); Lymphocyte # 1.98 X10^3/ul (0.83-4.51); Lymphocyte % 35.4 % (19-41); Mean Corp Hgb Conc 34.7 g/dL (32-36); Mean Corpuscular Hgb 32.4 pg (27.0-32.0); Mean Corpuscular Volume 93.3 fL (81-99); Mean Platelet Vol. 10.7 fl (6.2-12.0); Monocyte# 0.49 X10^3/uL; Monocyte% 8.8 % (0-10); NRBC Flagged by Analyzer 0 % (0-5); Neutrophil # 2.91 X10^3/uL (2.7-7.7); Platelet Count 233 K/mm3 (150-450); RBC Distribution Width CV 12.1 % (11.6-14.6); Red Blood Count 3.89 M/mm3 (4.2-5.4); White Blood Count 5.6 K/mm3 (4.4-11.0)
[2021-03-08 06:23] LABS: Anion Gap 8 (5-15); BUN 11 mg/dL (7-18); BUN/Creat Ratio 21.2 RATIO (10-20); Calcium,Total 8.7 mg/dL (8.5-10.1); Chloride 109 mmol/L (98-107); Creatinine, Serum 0.52 mg/dL (0.55-1.02); EST Glomerular Filtration Rate 137 mL/min (>60); Est Glom Filt Rate - Afr Amer 166 mL/min (>60); Estimated Creatinine Clearance 109.91 ml/min; Glucose 91 mg/dL (74-106); Magnesium 2.5 mg/dL (1.6-2.6); Potassium 3.1 mmol/L (3.5-5.1); Sodium Level 140 mmol/L (136-145)
[2021-03-08 07:30] VITALS: BP 119/70; PULSE 84; RESP 18; TEMP 37.2; O2SAT 98
[2021-03-08 08:29] LABS: Phosphorus 2.7 mg/dL (2.5-4.9)
[2021-03-08] MEDS: Enoxaparin 40 MG/0.4 ML Syringe SC (10:38)
--- NOTE | 2021-03-08 11:07 | PCM.DC ---
Discharge Instructions Diet Discharge Diet: No restrictions Activity Discharge Activity: Return to Normal Activity Dressing / Incision Call your doctor if you observe: Fever of 101 or Higher, Shortness of breath, Dizziness, Fainting spells, Swelling in the ankles, Chest pain and Increased palpitations (irregular heartbeat) Follow Up Care Test Results: Test results from this visit will be discussed in further detail at your follow-up appointment, if applicable. Discharge Plan Admission Admit Date/Time: 03/05/21 23:25 Attending Provider: Viktor Flor Primary Care Provider: Stacia Joans Primary Discharge Orders/Prescriptions Prescriptions: New pantoprazole [Protonix] 40 mg tablet,delayed release (DR/EC) 40 mg PO DAILY Qty: 30 RF: 0 Continued ondansetron 4 MG tablet 4 mg PO Q8H PRN PRN (Reason: Nausea) Qty: 10 RF: 0 lorazepam [Ativan] 1 mg tablet 1 mg PO TID PRN (Reason: anxiety) Qty: 10 RF: 0 Referrals / Follow Up: Care Physician,No Primary [Primary Care Provider] - Disposition Disposition (needs filled in before D/C Order can be placed): Home, Self Care
[2021-03-08] MEDS: Potassium Chloride 10mEq/100mL 10 MEQ/100 ML IV.SOLN. 80 MEQ IV BOLUS ×4 (12:19→16:16)
--- NOTE | 2021-03-08 14:04 | CHAPLAIN ---
Type of Pastoral Visit _x__ Initial Visit ___ Follow-up Visit ___ On-call Visit ___ General Patient Visit ___ Spiritual Assessment ___ Family Conference ___ Bereavement ___ Rapid Response ___ Code Blue ___ Other (describe below) Pastoral Care Referral From _x__ Patient ___ Family ___ Nurse ___ Physician ___ Parachute Inspector ___ Buffet Waiter/Waitress ___ Other (describe below) Sacrament/Intervention ___ Active listening ___ Anointing ___ Mormonism ___ Bereavement ___ Communion ___ Dorina exploration ___ ___ Life review ___ Prayer ___ Reconciliation ___ Sacrament of Sick _x__ Supportive presence ___ Wedding ___ Other (describe below) Pastoral Comments patient is watching TV; pt states that she is feeling better, has no other concerns, and doing fine
[2021-03-08 14:16] VITALS: BP 104/67; PULSE 70; RESP 18; TEMP 37.1; O2SAT 100
--- NOTE | 2021-03-08 16:16 | DS.PCM_ITS ---
Providers Date of Admission: 03/05/21 Primary Care Physician: No Primary Care Phys Reason For Visit: CANNIBOID HYPEREMESIS SYNDROME Diagnosis Discharge Diagnosis (1) Nausea & vomiting: Status: Acute Code(s): R11.2 - Nausea with vomiting, unspecified (2) Cannabinoid hyperemesis syndrome: Status: Acute Code(s): R11.2 - Nausea with vomiting, unspecified; F12.90 - Cannabis use, unspecified, uncomplicated Medications at Discharge Home Medications lorazepam [Ativan] 1 mg PO TID PRN #10 tab 03/02/21 ondansetron 4 mg PO Q8H PRN PRN #10 tab 03/02/21 pantoprazole [Protonix] 40 mg PO DAILY #30 tab 03/08/21 Hospital Course Operations None Procedures None Summary of Care Provided Minutes Spent on Discharge: 37 Hospital Course: Per HPI: ANDREINA BURGOS, is a 40 F who presents with nausea and vomiting. Patient was seen in the ED several days ago for more anxiety type symptoms and nausea vomiting but was discharged on Zofran. She took the Zofran very frequently up to every 2 hours and it did help the nausea but she ran out of the medications. Her nausea and vomiting symptoms have been going on since 4 days ago and she notes that these are new. She has not been eating solid food for the last 2 days but does drink Gatorade and can keep this down. She drinks Gatorade in bathtub and states the warm water helps with her nausea and she can tolerate the Gatorade better. She does smoke marijuana and she has been smoking marijuana for many years, 2-5 times a day and will wake up during the night to smoke marijuana as well. She smokes marijuana to relieve the pain in her feet. Vomiting has been getting very severe over 6 times a day, and she states that her house is a mess due to all the emesis. Upon evaluation in the ED her vitals were completely stable, and she had improvement in her symptoms, but stated that she has trouble sleeping and wanted to stay. The labs were significant for potassium of 2.9, LFT's normal. Urine preg test negative from 3 days prior. She does not smoke tobacco or use alcohol Hospital Course: 1. Nausea and vomiting secondary to a panic attack as well as cannabis use? 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 She has come fairly frequently over the last couple of weeks secondary to increased anxiety and panic attacks. She says that a lot of times with anxiety she will get nauseated and have episodes of emesis but not to this extent or for this duration. She is feeling better today and she is getting her potassium replaced. She was given another dose of IV fluids but she is able to hold down Gatorade, she states that icewater makes her vomit. She also had resolution of her nausea and vomiting on a previous ER visit with the administration of Ativan. I discussed with her the need to follow-up with psychiatry as an outpatient to try to get his anxiety under control as much as possible. She should also in the meantime quit using marijuana though I do recognize it this could be a little bit of an issue in terms of having increased anxiety at that point but once again she needs to follow-up with psychiatry as an outpatient. She denies any abdominal pain. I did discuss with her the plan for discharge today and she expressed understanding of the risk and benefits of going home and would like to go home today. She understands that she needs to take her p.o. intake seriously and slowly and she will be sent home with a prescription for PPI. In review of her record she does have Zofran at home slightly recommended she continue this and get a refill from her primary care physician if necessary. Physical Exam Const alert, oriented x3 and no apparent distress General Appearance: cooperative HEENT normocephalic and moist oral mucous membranes Eyes PERRL, EOMs intact bilaterally and conjunctivae normal Neck supple and no JVD Resp normal respiratory effort, no retractions, no use of accessory muscles and clear to auscultation bilaterally Auscultation: Negative for crackles, rales, rhonchi or wheezes Cardio regular rate, regular rhythm, S1 normal heart sound, S2 normal heart sound and no murmurs GI soft to palpation, non-tender and non-distended; Negative for hepatosplenomegaly Extremity no clubbing, cyanosis or edema Skin no rashes or lesions noted Neuro no focal motor deficits and no sensory deficits noted Psych affect normal Appearance: appropriate Weight / BMI Weight Weight: 108 lb 14.534 oz Body Mass Index (BMI) 16.0 ABG / Lab / Microbiology Data Result Diagrams: 03/08/21 05:35 03/08/21 05:35 Laboratory: Laboratory Results - last 24 hr 03/08/21 05:35: WBC 5.6, RBC 3.89 L, Hgb 12.6, Hct 36.3 L, MCV 93.3, MCH 32.4 H, MCHC 34.7, RDW Std Deviation 42.0, RDW Coeff of Juanjo 12.1, Plt Count 233, MPV 10.7, Immature Gran % (Auto) 0.200, Neut % (Auto) 52.0, Lymph % (Auto) 35.4, [place] % (Auto) 8.8, Eos % (Auto) 2.9, Baso % (Auto) 0.7, Absolute Neuts (auto) 2.9, Absolute Lymphs (auto) 1.98, Nucleated RBC % 0 03/08/21 05:35: Sodium 140, Potassium 3.1 L, Chloride 109 H, Carbon Dioxide 23.0, Anion Gap 8, BUN 11, Creatinine 0.52 L, Estim Creat Clear Calc 109.91, Est GFR (MDRD) Af Amer 166, Est GFR (MDRD) Non-Af 137, BUN/Creatinine Ratio 21.2 H, Glucose 91, Calcium 8.7, Magnesium 2.5 03/08/21 05:35: Phosphorus 2.7 D/C Instructions Discharge Diet: No restrictions Call your doctor if you observe: Fever of 101 or Higher, Shortness of breath, Dizziness, Fainting spells, Swelling in the ankles, Chest pain and Increased palpitations (irregular heartbeat) Meaningful Use Info Meaningful Use Diagnoses (Choose all that apply): None applicable Discharge Plan Admission Admit Date/Time: 03/05/21 23:25 Attending Provider: Viktor Flor Primary Care Provider: Care Physician,No Primary Discharge Orders/Prescriptions Prescriptions: New pantoprazole [Protonix] 40 mg tablet,delayed release (DR/EC) 40 mg PO DAILY Qty: 30 RF: 0 Continued ondansetron 4 MG tablet 4 mg PO Q8H PRN PRN (Reason: Nausea) Qty: 10 RF: 0 lorazepam [Ativan] 1 mg tablet 1 mg PO TID PRN (Reason: anxiety) Qty: 10 RF: 0 Referrals / Follow Up: Care Physician,No Primary [Primary Care Provider] - Disposition Disposition (needs filled in before D/C Order can be placed): Home, Self Care Charges/Coding Visit Charges OBSV E&M: 04115 Observation care discharge
== END 2021-03-08 18:48 | disposition home or self-care (01) ==
LOC: ED 20:34 → MS3 03-06 03:16
PROVIDERS: Admitting Provider Hospitalist; Emergency Provider Student in an Organized Health Care Education/Training Program; Visit Provider Family Medicine
DX: R11.2 Nausea with vomiting, unspecified (principal); F41.1 Generalized anxiety disorder; F12.90 Cannabis use, unspecified, uncomplicated; E87.6 Hypokalemia
CPT/HCPCS: 36415; 80048; 80053; 80076; 80307; 81001; 83690; 83735; 84100; 85025; 96361; 96365; 96366; 96367; 96372; 96375; 96376; 97802; 99218; 99283; J7030; J7040; J7050; A4216; G0378; J2405; J3490